=== PATIENT | female | born 1995 | race Caucasian/White ===

== ENCOUNTER 2021-11-05 19:56 | Emergency (ER) | payer OTHER, SELFPAY ==
--- NOTE | ~2021-11-05 | CT_ITS ---
EXAMINATION: HEAD CT WITHOUT CONTRAST CERVICAL SPINE CT WITHOUT CONTRAST CLINICAL INFORMATION: Neck pain. Status post fall. L on ice. COMPARISON: None. TECHNIQUE: Contiguous axial imaging of the head was performed without the administration of IV contrast. Axial multidetector volumetric images were also performed through the cervical spine without intravenous contrast. Multiplanar reconstructed images in coronal and sagittal orientations were submitted. This CT examination was performed using dose optimization techniques as appropriate, variously including the following: *Automated exposure control *Adjustment of mA and/or kV according to patient size (this includes techniques or standardized protocols for targeted exams where dose is matched to indication/reason for exam; i.e. extremities or head) *Use of iterative reconstruction technique DOSE: 937 mGy-cm FINDINGS: HEAD: There is no evidence of acute intracranial hemorrhage or territorial infarction. No abnormal mass-effect or midline shift. No extra-axial fluid collections. Duran to white matter differentiation is well preserved. The ventricles are normal in size and configuration. There is no abnormal attenuation within the brain parenchyma. The soft tissues and osseous structures are normal. The sinuses and mastoid air cells are clear. CERVICAL SPINE: Vertebral body heights are normal. No fractures of the vertebral bodies or posterior elements. Reversal of the normal cervical lordosis is likely positional. No vertebral body or posterior element subluxation. The craniocervical and atlantoaxial articulations are normal. Intervertebral disc heights are normal. No significant degenerative disc disease. Facet joints are normal. Central canal and neural foramina appear patent without appreciable stenoses. No significant paravertebral soft tissue swelling. Cervical soft tissues are unremarkable. Imaged portions of the lung apices are clear. CT/CT cervical spine wo con IMPRESSION: 1. No acute intracranial pathology. 2. No acute fracture or malalignment in the cervical spine.
[2021-11-05 20:11] VITALS: BP 134/85; PULSE 88; RESP 16; TEMP 37.2; O2SAT 98; BMI 22.6
--- NOTE | 2021-11-05 20:39 | ED_ITS ---
HPI - Fall General Chief Complaint: Fall Stated Complaint: fell on ice ,,hit head and neck pain Time Seen by Provider: 11/05/21 20:35 History of Present Illness HPI Narrative: Patient is a 26-year-old female, patient claims she slipped on ice. Positive new right occipital area. No loss of consciousness positive feeling days. Known nausea no vomiting. No focal weakness felt her neck might have snapped. Patient came in for further evaluation. Not on blood thinners. No drugs al cohol. Patient was walking on ice at the time. She slipped. Related Data Allergies Allergy/AdvReac Type Severity Reaction Status Date / Time No Known Allergies Allergy Unverified 06/17/20 17:00 [No Known Allergies*] Review of Systems Verdana 4l Review of Systems: Verdana 4d No nausea no vomiting no Verdana 4d focal weakness not on blood thinners all system reviewed otherwise Verdana 4d Yes all other systems are reviewed and are negative [facility] Past Medical History Attestation statement: The following information was validated with the patient. Medical History No known health problems Social History Social History Advance Directives: No Advance Directives Information Provided: No Patient : No Physical Exam Verdana 4l Vital Signs: Verdana 4d Verdana 4d Vital Signs: Verdana 4d Verdana 4Bd Last Vital Signs Verdana 4d Wallpaper Inspector New 4d Wallpaper Inspector New 4d Temp 98.9 F 11/05/21 20:11 Wallpaper Inspector New 4d Pulse 86 11/05/21 22:01 Wallpaper Inspector New 4d Resp 18 11/05/21 22:01 BP 128/38 L 11/05/21 22:01 Pulse Ox 99 11/05/21 22:01 BMI result Body Mass Index 22.6 Appearance: Alert. Oriented X3. No acute distress. Eyes: Pupils equal, round and reactive to light. ENT: Pharynx normal. no hemotympanum no midface tenderness no malocclusions Neck: Normal inspection. Neck supple. No lymph nodes noted. No crepitus no posterior C-spine tenderness CVS: Normal heart rate and rhythm. Pulses normal. Normal S1 and S2 Respiratory: No respiratory distress. Breath sounds normal. No Wheezing. No rales Abdomen: Soft and nontender. No rigidity. No distention. good BS x4 Skin: Skin warm and dry. Normal skin color. Normal skin turgor. Extremities: No lower extremity edema. Neurovascular intact to all extremities. No Lacerations. No Rash Neuro: Oriented X 3. No motor deficit. No sensory deficit. Moving all extermities. No slurred speech MDM - Fall MDM Narrative Medical decision making narrative: CT scan of the head and C-spine were grossly negative for any acute evidence of bleeding no fracture. Will discharge patient home head injury precaution. In stable condition. Medical Records Attestation: I reviewed the patient's medical records. Lab Data Attestation: I reviewed the patient's lab results. Labs: Lab Results 11/05/21 Range/Units 20:50 Urine Test NEGATIVE (NEGATIVE) Discharge Plan Discharge Clinical Impression: Head injury Patient Disposition: Home, Self-Care Instructions: Head Injury (ED) Referrals: Physician,None [Primary Care Provider] - 2 days
[2021-11-05 21:20] LABS: UPreg QC Valid YES; Urine Pregnancy NEGATIVE (NEGATIVE)
[2021-11-05 22:01] VITALS: BP 128/38; PULSE 86; RESP 18; O2SAT 99
== END 2021-11-05 22:35 | disposition home or self-care (01) ==
PROVIDERS: Emergency Provider Emergency Medicine Emergency Medical Services
DX: S09.90XA Unspecified injury of head, initial encounter (principal); W00.0XXA Fall on same level due to ice and snow, initial encounter; M54.2 Cervicalgia; Y93.01 Activity, walking, marching and hiking; Y92.410 Unspecified street and highway as the place of occurrence of the external cause; Y99.9 Unspecified external cause status
CPT/HCPCS: 70450; 72125; 81025; 99283; 99284